=== PATIENT | female | born 2000 | race American Indian/Alaskan Native ===

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

== ENCOUNTER 2022-03-12 00:54 | Emergency (ER) | payer OTHER, MEDICAID ==
[2022-03-12 01:50] LABS: CHLORIDE,CL 106 mEq/L (98-106); SODIUM,NA 140 mEq/L (136-145)
[2022-03-12 03:30] VITALS: BP 126/83; PULSE 67
[2022-03-14 11:46] LABS: C.TRACHOMATIS BY TMA Negative (Negative); N.GONORRHOEAE BY TMA Negative (Negative)
== END 2022-03-12 02:30 | disposition home or self-care (01) ==
LOC: CC.ED 00:54
DX: T19.2XXA Foreign body in vulva and vagina, initial encounter (principal); A63.0 Anogenital (venereal) warts
CPT/HCPCS: 36415; 80053; 81001; 81025; 83605; 83690; 85025; 86140; 87210; 87491; 87591; 99283

== ENCOUNTER 2022-11-19 11:44 | Emergency (ER) | payer OTHER, MEDICAID ==
[2022-11-19 12:11] VITALS: BP 107/65; PULSE 72
== END 2022-11-19 12:38 | disposition home or self-care (01) ==
LOC: SUPCPDRO 11:44 → CC.ED 11:44
DX: O20.0 Threatened abortion (principal); Z3A.01 Less than 8 weeks gestation of pregnancy
CPT/HCPCS: 36415; 85018; 99283; 99284